=== PATIENT | female | born 1985 | race African-American/Black ===

== ENCOUNTER 2022-08-02 10:39 | Emergency (ER) | payer BC, SELFPAY ==
--- NOTE | 2022-08-02 10:50 | ED.GENADULT ---
HPI - General Adult General Stated complaint: dizzy and lightheaded, abdominal pain Time Seen by Provider: 08/02/22 10:50 Mode of arrival: ambulatory Limitations: no limitations History of Present Illness HPI narrative: 36-year-old female presents with concern for 3 week history of ?not feeling herself . feeling lightheaded when she stands up, feeling nauseated, having abdominal pain that starts in the low back and radiates around to the right low abdomen. She reports decreased appetite. She denies fever, vomiting, diarrhea, dysuria, frequency, urgency, hematuria. She reports normal bowel movements. She reports she had a kidney stone last year that she had a procedure for, reports her symptoms were different at that time she had significant flank pain. She is not currently having flank pain. She denies fevers, chills, sweats. She does not currently have a primary care provider. She reports she has been having abnormal menstrual periods that are abnormally long her last menstrual period ended beginning of July ans was abnormally short. She is concern for MD complaint: Abdominal pain Related Data Home Medications Medication Instructions Recorded Confirmed No Home Medications 08/02/22 08/02/22 Allergies Allergy/AdvReac Type Severity Reaction Status Date / Time No Known Allergies Allergy Verified 08/02/22 10:57 Review of Systems Review of Systems: CONSTITUTIONAL: Denies malaise, chills, sweats, or fever. ENT: Denies rhinorrhea, congestion, sinus pain, otalgia or sore throat. CARDIOVASCULAR: Denies chest pain, palpitations, or edema. RESPIRATORY: Denies cough or dyspnea. GASTROINTESTINAL: Reports abdominal pain, nausea. Denies constipation, vomiting, diarrhea, bloody, or mucous stools. GENITOURINARY: Denies dysuria or hematuria. SKIN: Denies rash or itching. MUSCULOSKELETAL: Reports right low back pain. Denies joint pain or myalgia. NEUROLOGIC: Denies numbness, weakness, or headache. Reports lightheadedness All systems reviewed & are unremarkable except as noted in HPI and below PMFSH Comments At time of signature, agree with nursing past medical, surgical, social and family history. There is no relevant family history pertinent to the presenting complaint Exam Narrative: GENERAL: Well-appearing, well-nourished, and in no acute distress. HEAD: Normocephalic, atraumatic. EYES: PERRLA, sclera clear, and EOMI. No nystagmus. ENT: Nares clear, no rhinorrhea or epistaxis. Mucous membranes moist. NECK: Supple. No lymphadenopathy. CHEST: No respiratory distress. Clear to auscultation. No bony deformities, no asymmetry. Speaks in full sentences. HEART: Regular rate and rhythm. No murmur heard. Normal peripheral pulses. ABDOMEN: Soft, nondistended, normal active bowel sounds, no palpable masses. Suprapubic tenderness. No CVA tenderness SKIN: Warm, dry, no visible rash. NEURO: Alert and oriented x3. PSYCH: Normal mood and affect Course Course Emergency Course: Discussed exam findings, UA findings, positive test with patient. Advised transfer to emergency department for further evaluation and rule out ectopic . Patient is aware of, understands and agrees to be transferred to the emergency department. EMS offered, patient would prefer to go via private vehicle. Patient agrees to proceed directly to the emergency department. Portions of this record may have been created with voice recognition software Level of Care: Express Care Visit Vital Signs Vital signs: Reviewed. Transfer Transfered to: [facility] Transportation: Other (private vehicle) Transfer rationale: RLQ pain, ectopic Accepting physician: Alex Miranda Medical Decision Making MDM Narrative Medical decision making narrative: Exam findings and imaging show no acute concerns or changes; patient is non-toxic appearing and is in no distress. Patient is appropriate for outpatient treatment and follow-up. Gwen
[2022-08-02 10:51] VITALS: BP 142/87; PULSE 95; RESP 16; TEMP 37.3; O2SAT 100
== END 2022-08-02 11:26 | disposition short-term general hospital (02) ==
PROVIDERS: Emergency Provider Nurse Practitioner
DX: O26.899 Other specified pregnancy related conditions, unspecified trimester (principal); Z3A.00 Weeks of gestation of pregnancy not specified; R10.31 Right lower quadrant pain
CPT/HCPCS: 81003; 81025; 87086; 87088; 99213; G0463

== ENCOUNTER 2022-08-02 11:44 | Emergency (ER) | payer BC, SELFPAY ==
--- NOTE | ~2022-08-02 | US_ITS ---
EXAMINATION: US OB <=14 wk fetus w TV DATE: 08/02/2022 13:15 INDICATION: Right adnexal pain during first trimester TECHNIQUE: Real-time pelvic ultrasound utilizing both a transvaginal and transabdominal probe was pe rformed. The interpreting radiologist was not present for the study. COMPARISON: None. FINDINGS: The uterus measures 10.8 x 8.9 x 7.2 cm. There is an intrauterine gestational sac. A yolk sac and fe jose pole are identified. The crown rump length measures 1.0 cm, which correlates with an estimated ge stational age of 7 weeks and 1 days. 1.5 x 1.0 x 0.6 similar subchorionic hematoma along the right si de of the gestational sac. heart motion is identified measuring 147 beats per minute (bpm) by M -mode Doppler. Normal cervical length of 4.0 cm. 1.8 cm and 1.1 cm hypoechoic uterine fibroids. The right ovary is not visualized. The left ovary measures 3.4 x 2.1 x 2.2 cm. 1.8 cm thick-walled ce ntrally anechoic corpus luteum cyst in the left ovary. Vascular flow identified in the left ovary on color Doppler. There is no free fluid in the pelvis. IMPRESSION: 1. Single living fetus with heart rate of 147 BPM. 2. Small subchorionic hematoma. 3. Gestational age by ultrasound of 7 weeks 1 day(s) +/- 5 day(s) with ultrasound estimated date of d elivery ([facility]) of 03/20/2023. 4. Fibroid uterus. Reviewed, dictated and finalized at location A. RY DRILL RIG OPERATOR IMPRESSION: 1. Single living fetus with heart rate of 147 BPM. 2. Small subchorionic hematoma. 3. Gestational age by ultrasound of 7 weeks 1 day(s) +/- 5 day(s) with ultrasou nd estimated date of delivery ([facility]) of 03/20/2023. 4. Fibroid uterus.
[2022-08-02 11:46] VITALS: BP 144/84; PULSE 80; RESP 14; TEMP 36.4; O2SAT 100
[2022-08-02 12:16] LABS: Basophils Percent Auto 0.1 % (0.2-1.2); Eosinophils Percent Auto 0.3 % (0-4.4); Hematocrit 37.5 % (37.0-47.0); Hemoglobin 12.6 g/dL (12.0-15.0); Immature Granulocyte Absolute 0.03 K/mm3 (0.00-0.031); Immature Granulocyte Percent A 0.4 % (0-0.5); Lymphocytes Absolute Auto 1.99 K/mm3 (0.9-3.2); Lymphocytes Percent Auto 27.1 % (18.3-44.2); Mean Corpuscular HGB Conc 33.6 g/dl (32-36); Mean Corpuscular Hemoglobin 29.1 pg (26-34); Mean Corpuscular Volume 86.6 fl (80-100); Mean Platelet Volume 9.9 fl (7.4-10.4); Monocytes Absolute Auto 0.4 K/mm3 (0.1-0.6); Monocytes Percent Auto 5.2 % (2.6-8.5); Neutrophils Absolute Auto 4.9 K/mm3 (1.3-6.7); Neutrophils Percent Auto 66.9 % (45.5-73.1); Platelet Count Result 329 k/mm3 (150-375); Red Blood Count 4.33 M/mm3 (4.2-5.4); White Blood Count 7.3 K/mm3 (4.5-10.0)
[2022-08-02 12:18] LABS: Appearance Urine Clear (Clear); Bilirubin Urine Negative (Negative); Blood Urine Trace-intact (Negative); Color Urine Yellow (Yellow); Glucose Urine UA Negative (Negative); Ketones Urine Negative (Negative); Leukocyte Esterase Ur Negative LEU/UL (Negative); Nitrate Urine Negative (Negative); Protein Urine 1+ mg/dL (Negative); Specific Grav Ur 1.025 (1.001-1.035); Urobilinogen Urine 0.2 mg/dL (<2.0)
[2022-08-02 12:24] LABS: Add Urine Microscopic? YES; Bacteria Urine Trace /hpf; Mucus Urine Rare /lpf; Squamous Epithelial Cell Urine Many /hpf (Few)
[2022-08-02 12:25] LABS: Alanine Aminotransferase 18 U/L (6-35); Albumin Level 4.6 g/dL (3.5-5.1); Alkaline Phosphatase 55 U/L (38-126); Anion Gap 10 mmol/L (8-16); Aspartate Amino Transferase 24 U/L (14-36); Bilirubin,Total 0.5 mg/dL (0.2-1.3); Blood Urea Nitrogen 9 mg/dL (7-17); Calcium 8.7 mg/dL (8.4-10.2); Carbon Dioxide 23 mmol/L (22-30); Chloride 103 mmol/L (98-107); Estimated CRCL calculation 121 ml/min; Estimated Glomerular Filt Rate > 60; Glucose 96 mg/dL (65-110); Lipase 147 U/L (23-300); Potassium 3.4 mmol/L (3.4-5.0); Sodium 136 mmol/L (137-145)
--- NOTE | 2022-08-02 12:54 | PC.NURSE ---
Pt taken to US
--- NOTE | 2022-08-02 15:28 | ED.ABDPAIN ---
HPI - Abdominal Pain General Chief Complaint: Abdominal Pain Stated Complaint: Abd pain Time Seen by Provider: 08/02/22 11:53 History of Present Illness HPI narrative: Patient is a 36-year-old female who presents ER with lower abdominal cramping. She went to an urgent care to be evaluated and discovered she was . She reports LMP was 4 weeks ago. She reports that she is a G6, P6 (1 twin delivery). She has had no vaginal bleeding or discharge. Denies any additional issues. Related Data Allergies Allergy/AdvReac Type Severity Reaction Status Date / Time No Known Allergies Allergy Verified 08/02/22 11:57 Review of Systems Review of Systems: All systems reviewed & are unremarkable except as noted in HPI and below Constitutional: Constitutional: Denies chills, Denies fatigue and Denies fever(s) Respiratory: Respiratory: Denies cough and Denies dyspnea Gastrointestinal: Gastrointestinal: Reports abdominal pain, Denies nausea and Denies vomiting Genitourinary: Genitourinary: Denies abnormal vaginal bleeding, Denies hematuria, Denies nocturia, Denies dysuria, Denies flank pain and Denies vaginal discharge PMFSH Past Medical History Medical History (Updated 08/02/22 @ 15:44 by Mehrdad Cordova MD) Healthy female adult Surgical History Surgical History (Updated 08/02/22 @ 15:44 by Mehrdad Cordova MD) No pertinent past surgical history Exam Narrative: GENERAL: Well-appearing, well-nourished, and in no acute distress. HEAD: Normocephalic, atraumatic. CHEST: Clear to auscultation. No respiratory distress. HEART: Regular rate and rhythm. Normal peripheral pulses. ABDOMEN: Soft, mild suprapubic discomfort without guarding, nondistended. EXTREMITIES: Normal range of motion. No edema. SKIN: Warm, dry, no rash. NEURO: Alert and oriented x3. PSYCH: Normal mood and affect. Course Course Emergency Course: Patient resting comfortably. Informed of results. Discussed subchorionic hematoma and need for follow-up with OB. Will provide patient with phone number of on-call OB. Discussed patient does not require RhoGAM as her blood type is be positive. We will treat urine for infection given and lower abdominal cramping. Vital Signs Vital signs: Vital Signs Temperature 97.6 F 08/02/22 11:46 Pulse Rate 80 08/02/22 11:46 Respiratory Rate 14 08/02/22 11:46 Blood Pressure 144/84 H 08/02/22 11:46 Pulse Oximetry 100 08/02/22 11:46 Oxygen Delivery Room Air 08/02/22 11:46 Temperature 97.6 F 08/02/22 11:46 Pulse Rate 80 08/02/22 11:46 Respiratory Rate 14 08/02/22 11:46 Blood Pressure 144/84 H 08/02/22 11:46 Pulse Oximetry 100 08/02/22 11:46 Oxygen Delivery Room Air 08/02/22 11:46 MDM - Abdominal Pain Lab Data 08/02/22 11:59 08/02/22 11:59 Labs: Lab Results 08/02/22 08/02/22 08/02/22 Range/Units 11:59 11:59 12:07 WBC 7.3 (4.5-10.0) K/mm3 RBC 4.33 (4.2-5.4) M/mm3 Hgb 12.6 (12.0-15.0) g/dL Hct 37.5 (37.0-47.0) % MCV 86.6 (80-100) fl MCH 29.1 (26-34) pg MCHC 33.6 (32-36) g/dl RDW 14.0 (11.5-14.5) % Plt Count 329 (150-375) k/mm3 MPV 9.9 (7.4-10.4) fl Immature Gran % (Auto) 0.4 (0-0.5) % Neut % (Auto) 66.9 (45.5-73.1) % Lymph % (Auto) 27.1 (18.3-44.2) % [place] % (Auto) 5.2 (2.6-8.5) % Eos % (Auto) 0.3 (0-4.4) % Baso % (Auto) 0.1 L (0.2-1.2) % Lymph # (Auto) 1.99 (0.9-3.2) K/mm3 [place] # (Auto) 0.4 (0.1-0.6) K/mm3 Eos # (Auto) 0.0 (0-0.3) K/mm3 Baso # (Auto) 0.0 (0.0-0.1) K/mm3 Abs Immat Gran (auto) 0.03 (0.00-0.031) K/mm3 Absolute Neuts (auto) 4.9 (1.3-6.7) K/mm3 Absolute Nucleated RBC 0.0 (0.0-0.012) K/mm3 Nucleated RBC % 0.0 (0.0-0.2) % Sodium 136 L (137-145) mmol/L Potassium 3.4 (3.4-5.0) mmol/L Chloride 103 (98-107) mmol/L Carbon Dioxide 23 (22-30) mmol/L Anion Gap 10 (8-16)
== END 2022-08-02 15:49 | disposition home or self-care (01) ==
PROVIDERS: Emergency Provider Emergency Medicine
DX: O23.41 Unspecified infection of urinary tract in pregnancy, first trimester (principal); O46.8X1 Other antepartum hemorrhage, first trimester; O34.11 Maternal care for benign tumor of corpus uteri, first trimester; Z3A.01 Less than 8 weeks gestation of pregnancy
CPT/HCPCS: 36415; 76801; 76817; 80053; 81001; 81025; 83690; 85025; 86900; 86901; 99284

== ENCOUNTER 2022-10-11 10:32 | Outpatient (CLI) | payer BC, SELFPAY ==
[2022-10-11 11:09] LABS: Basophils Percent Auto 0.4 % (0.2-1.2); Eosinophils Absolute Auto 0.1 K/mm3 (0-0.3); Hematocrit 37.4 % (37.0-47.0); Hemoglobin 12.3 g/dL (12.0-15.0); Immature Granulocyte Absolute 0.09 K/mm3 (0.00-0.031); Immature Granulocyte Percent A 1.2 % (0-0.5); Lymphocytes Percent Auto 23.2 % (18.3-44.2); Mean Corpuscular HGB Conc 32.9 g/dl (32-36); Mean Corpuscular Volume 91.2 fl (80-100); Mean Platelet Volume 9.9 fl (7.4-10.4); Monocytes Absolute Auto 0.6 K/mm3 (0.1-0.6); Neutrophils Absolute Auto 5.2 K/mm3 (1.3-6.7); Neutrophils Percent Auto 66.2 % (45.5-73.1); Platelet Count Result 254 k/mm3 (150-375); Red Cell Distribution Width 15.3 % (11.5-14.5); White Blood Count 7.8 K/mm3 (4.5-10.0)
[2022-10-11 12:02] LABS: HIV 1/2 Ab P24 Ag Result Negative (Negative)
[2022-10-11 12:18] LABS: Hepatitis B Surface Antigen Negative (Negative)
[2022-10-11 14:42] LABS: Hepatitis B Surface Antigen 0.06 S/C; Rubella IgG Antibody > 120.0 IU/ML
[2022-10-12 11:28] LABS: Rapid Plasma Reagin Non-Reactive (NonReactive)
[2022-10-15 08:47] LABS: CMV IgG Antibody >10.00 U/mL (<0.60)
== END 2022-10-11 10:33 | disposition home or self-care (01) ==
PROVIDERS: Visit Provider Student in an Organized Health Care Education/Training Program
DX: Z34.90 Encounter for supervision of normal pregnancy, unspecified, unspecified trimester (principal)
CPT/HCPCS: 36415; 84702; 85025; 85660; 86592; 86644; 86703; 86747; 86762; 86787; 86850; 86900; 86901; 87086; 87088; 87340; G0432

== ENCOUNTER 2022-11-07 11:50 | Outpatient (CLI) | payer BC, SELFPAY ==
[2022-11-07 12:11] VITALS: BP 124/76; PULSE 95
[2022-11-07 12:15] VITALS: BP 120/80; PULSE 102
[2022-11-07 12:30] VITALS: TEMP 36.9
--- NOTE | 2022-11-07 12:35 | PC.NURSE ---
Called Dr. Cruz with pt status. Informed of pt admission for possible leaking of fluid. ROM plus is negative, tracing appropriate for gestational age, no contractions seen on monitor, or felt by pt at this time. May D/C home.
== END 2022-11-07 12:40 | disposition home or self-care (01) ==
LOC: ANHOBOP 11:55 → ANHOBPP 11:57
PROVIDERS: Visit Provider Student in an Organized Health Care Education/Training Program
DX: O42.90 Premature rupture of membranes, unspecified as to length of time between rupture and onset of labor, unspecified weeks of gestation (principal); Z3A.00 Weeks of gestation of pregnancy not specified
CPT/HCPCS: 59025; 84112; 99199

== ENCOUNTER 2022-12-28 11:42 | Outpatient (CLI) | payer BC, SELFPAY ==
[2022-12-28 12:05] LABS: Basophils Percent Auto 0.2 % (0.2-1.2); Eosinophils Absolute Auto 0.1 K/mm3 (0-0.3); Eosinophils Percent Auto 0.7 % (0-4.4); Hematocrit 36.7 % (37.0-47.0); Hemoglobin 12.2 g/dL (12.0-15.0); Immature Granulocyte Absolute 0.09 K/mm3 (0.00-0.031); Immature Granulocyte Percent A 1.1 % (0-0.5); Mean Corpuscular HGB Conc 33.2 g/dl (32-36); Mean Corpuscular Hemoglobin 30.3 pg (26-34); Mean Corpuscular Volume 91.3 fl (80-100); Monocytes Absolute Auto 0.5 K/mm3 (0.1-0.6); Monocytes Percent Auto 6.2 % (2.6-8.5); Neutrophils Absolute Auto 5.7 K/mm3 (1.3-6.7); Neutrophils Percent Auto 68.8 % (45.5-73.1); Platelet Count Result 249 k/mm3 (150-375); Red Blood Count 4.02 M/mm3 (4.2-5.4); White Blood Count 8.3 K/mm3 (4.5-10.0)
[2022-12-28 13:03] LABS: HIV 1/2 Ab P24 Ag Result Negative (Negative)
== END 2022-12-28 11:43 | disposition home or self-care (01) ==
LOC: ANHLAB 11:43
PROVIDERS: Visit Provider Obstetrics & Gynecology
DX: Z34.90 Encounter for supervision of normal pregnancy, unspecified, unspecified trimester (principal); Z3A.00 Weeks of gestation of pregnancy not specified
CPT/HCPCS: 36415; 85025; 86703; G0432

== ENCOUNTER 2023-02-22 16:15 | Outpatient (CLI) | payer BC, SELFPAY ==
[2023-02-22] VITALS (8 sets, daily range): BP systolic 144–166; BP diastolic 74–95; PULSE 103–119
[2023-02-22 17:00] LABS: Basophils Percent Auto 0.2 % (0.2-1.2); Eosinophils Absolute Auto 0.1 K/mm3 (0-0.3); Eosinophils Percent Auto 0.8 % (0-4.4); Hematocrit 36.7 % (37.0-47.0); Hemoglobin 11.9 g/dL (12.0-15.0); Immature Granulocyte Percent A 2.4 % (0-0.5); Lymphocytes Absolute Auto 1.92 K/mm3 (0.9-3.2); Lymphocytes Percent Auto 23.2 % (18.3-44.2); Mean Corpuscular HGB Conc 32.4 g/dl (32-36); Mean Corpuscular Hemoglobin 30.3 pg (26-34); Mean Corpuscular Volume 93.4 fl (80-100); Mean Platelet Volume 10.7 fl (7.4-10.4); Monocytes Absolute Auto 0.8 K/mm3 (0.1-0.6); Monocytes Percent Auto 10.1 % (2.6-8.5); Neutrophils Absolute Auto 5.2 K/mm3 (1.3-6.7); Neutrophils Percent Auto 63.3 % (45.5-73.1); Platelet Count Result 207 k/mm3 (150-375); Red Blood Count 3.93 M/mm3 (4.2-5.4); Red Cell Distribution Width 14.4 % (11.5-14.5); White Blood Count 8.3 K/mm3 (4.5-10.0)
[2023-02-22 17:13] LABS: Alanine Aminotransferase 24 U/L (6-35); Albumin Level 3.7 g/dL (3.5-5.1); Alkaline Phosphatase 99 U/L (38-126); Anion Gap 5 mmol/L (8-16); Aspartate Amino Transferase 37 U/L (14-36); Bilirubin,Total 0.3 mg/dL (0.2-1.3); Blood Urea Nitrogen 5 mg/dL (7-17); Carbon Dioxide 21 mmol/L (22-30); Chloride 107 mmol/L (98-107); Estimated Glomerular Filt Rate > 60; Glucose 86 mg/dL (65-110); Potassium 3.3 mmol/L (3.4-5.0); Sodium 133 mmol/L (137-145); Uric Acid 4.6 mg/dL (2.5-7.5)
[2023-02-22 17:16] LABS: Creatinine Urine 68.2 mg/dL; Total Protein Urine Random 31 mg/dL; Ur Ttl Prot Creatinine Ratio 0.45 mg/mg (0-0.20)
[2023-02-22 17:18] LABS: Appearance Urine Clear (Clear); Bacteria Urine 1+ /hpf; Bilirubin Urine Negative (Negative); Blood Urine 1+ (Negative); Color Urine Yellow (Yellow); Glucose Urine UA Negative (Negative); Ketones Urine Negative (Negative); Leukocyte Esterase Ur 1+ LEU/UL (NEGATIVE); Need Manual Microscopic Reviewed; Nitrate Urine Negative (Negative); Non Pathogenic Casts 0-2; Protein Urine Trace mg/dL (Negative); Squamous Epithelial Cell Urine Few /hpf (Few); Urobilinogen Urine 0.2 mg/dL (<2.0); WBC Urine 21-50 /hpf (0-3)
[2023-02-22 17:37] LABS: Add Urine Microscopic? YES
--- NOTE | 2023-02-22 17:55 | PC.NURSE ---
Dr. Hamilton notified of this pt. Pt presents with Headache x 7 days and N/Vomiting x 3 days. VS and labs reported to provider. Order for 1g Tylenol and zofran PO and 24 hour urine.
[2023-02-22] MEDS: ACETAMINOPHEN 500 MG TABLET 1000 MG PO (18:07)
[2023-02-22] MEDS: ONDANSETRON HCL ODT 4 MG TABLET PO (18:08)
--- NOTE | 2023-02-22 19:43 | PM.OBTRLD ---
OB - Triage/Final Diagnosis Visit Information Reason for evaluation: other (headache, nausea/vomiting ) Comments/Additional reasons for admission: I have assessed the risk for this patient, Dayanara Mariscal, and determined that she would benefit from observation care. Evaluation Laboratory results: Laboratory Tests 02/22/23 16:46 WBC 8.3 RBC 3.93 L Hgb 11.9 L Hct 36.7 L MCV 93.4 MCH 30.3 MCHC 32.4 RDW 14.4 Plt Count 207 MPV 10.7 H Immature Gran % (Auto) 2.4 H Neut % (Auto) 63.3 Lymph % (Auto) 23.2 [place] % (Auto) 10.1 H Eos % (Auto) 0.8 Baso % (Auto) 0.2 Lymph # (Auto) 1.92 Nelson # (Auto) 0.8 H Eos # (Auto) 0.1 Baso # (Auto) 0.0 Abs Immat Gran (auto) 0.20 H Absolute Neuts (auto) 5.2 Absolute Nucleated RBC 0.0 Nucleated RBC % 0.0 Sodium 133 L Potassium 3.3 L Chloride 107 Carbon Dioxide 21 L Anion Gap 5 L BUN 5 L Creatinine 0.40 L Estim Creat Clear Calc Not Reportable Estimated GFR > 60 Glucose 86 Uric Acid 4.6 Calcium 9.0 Total Bilirubin 0.3 AST 37 H ALT 24 Alkaline Phosphatase 99 Total Protein 7.0 Albumin 3.7 Urine Color Yellow Urine Appearance Clear Urine pH 7.0 Ur Specific [place] 1.010 Urine Protein Trace Urine Glucose (UA) Negative Urine Ketones Negative Ur Blood (Man) 1+ H Urine Nitrate Negative Urine Bilirubin Negative Urine Urobilinogen 0.2 Ur Leukocyte Esterase 1+ H Add Ur Microanalysis Reviewed Urine RBC 6-10 H Urine WBC 21-50 Ur Squamous Epith Cells Few Urine Bacteria 1+ H Urine Casts 0-2 U Random Total Protein 31 Urine Creatinine 68.2 Protein/Creat Ratio 2 0.45 H Vital signs: Vital Signs - 24 hr 02/22/23 16:40 02/22/23 16:46 02/22/23 17:00 Pulse Rate 105 H 113 H 119 H Blood Pressure 145/85 H 145/91 H 148/95 H Blood Pressure [Right Arm] 02/22/23 17:16 02/22/23 17:31 02/22/23 17:46 Pulse Rate 110 H 114 H 103 H Blood Pressure 166/91 H 149/74 H 144/88 H Blood Pressure [Right Arm] 02/22/23 18:12 Pulse Rate 110 H Blood Pressure Blood Pressure [Right Arm] 145/85 H
== END 2023-02-22 19:14 | disposition home or self-care (01) ==
LOC: ANHOBOP 16:22 → ANHOBPP 16:23
PROVIDERS: Visit Provider Student in an Organized Health Care Education/Training Program
DX: O13.9 Gestational [pregnancy-induced] hypertension without significant proteinuria, unspecified trimester (principal); R51.9 Headache, unspecified; R11.2 Nausea with vomiting, unspecified; Z3A.00 Weeks of gestation of pregnancy not specified
CPT/HCPCS: 36415; 59025; 80053; 81001; 82570; 84156; 84550; 85025; 87086; 99199; A9270

== ENCOUNTER 2023-02-23 19:36 | Outpatient (NON) | payer BC, SELFPAY ==
[2023-02-23 21:54] LABS: Total Volume 24 Hour Urine 3100 ml
[2023-02-23 21:55] LABS: Specific Gravity Ur 1.012
[2023-02-23 22:04] LABS: Total Protein Urine Random 19 mg/dL
[2023-02-23 22:05] LABS: Creatinine 24 Hour Urine 1.5 gm/24 (0.8-1.8); Creatinine Urine 49.1 mg/dL; Total Protein Urine 24 Hr 589 mg/24hr (28-141)
== END 2023-02-23 19:37 | disposition home or self-care (01) ==
LOC: ANHOBOP 19:57
PROVIDERS: Visit Provider Student in an Organized Health Care Education/Training Program
DX: O13.9 Gestational [pregnancy-induced] hypertension without significant proteinuria, unspecified trimester (principal)
CPT/HCPCS: 81050; 82570; 84156

== ENCOUNTER 2023-02-28 06:39 | Inpatient (IN) | payer BC, SELFPAY ==
[2023-02-28] VITALS (161 sets, daily range): BP systolic 107–157; BP diastolic 51–115; PULSE 68–108; TEMP 36.5–37; O2SAT 96–100; BMI 36.2
[2023-02-28 07:35] LABS: Basophils Percent Auto 0.3 % (0.2-1.2); Eosinophils Absolute Auto 0.1 K/mm3 (0-0.3); Eosinophils Percent Auto 1.1 % (0-4.4); Hematocrit 36.2 % (37.0-47.0); Hemoglobin 12.1 g/dL (12.0-15.0); Immature Granulocyte Absolute 0.11 K/mm3 (0.00-0.031); Immature Granulocyte Percent A 1.5 % (0-0.5); Lymphocytes Absolute Auto 1.83 K/mm3 (0.9-3.2); Lymphocytes Percent Auto 25.8 % (18.3-44.2); Mean Corpuscular HGB Conc 33.4 g/dl (32-36); Mean Corpuscular Hemoglobin 30.5 pg (26-34); Mean Corpuscular Volume 91.2 fl (80-100); Mean Platelet Volume 10.2 fl (7.4-10.4); Monocytes Absolute Auto 0.6 K/mm3 (0.1-0.6); Monocytes Percent Auto 7.7 % (2.6-8.5); Neutrophils Absolute Auto 4.5 K/mm3 (1.3-6.7); Neutrophils Percent Auto 63.6 % (45.5-73.1); Platelet Count Result 192 k/mm3 (150-375); Red Blood Count 3.97 M/mm3 (4.2-5.4); Red Cell Distribution Width 14.2 % (11.5-14.5); White Blood Count 7.1 K/mm3 (4.5-10.0)
[2023-02-28 07:52] LABS: Alanine Aminotransferase 23 U/L (6-35); Albumin Level 3.8 g/dL (3.5-5.1); Alkaline Phosphatase 109 U/L (38-126); Anion Gap 8 mmol/L (8-16); Aspartate Amino Transferase 25 U/L (14-36); Bilirubin,Total 0.3 mg/dL (0.2-1.3); Blood Urea Nitrogen 9 mg/dL (7-17); Calcium 8.7 mg/dL (8.4-10.2); Carbon Dioxide 19 mmol/L (22-30); Chloride 108 mmol/L (98-107); Estimated Glomerular Filt Rate > 60; Glucose 98 mg/dL (65-110); Potassium 3.1 mmol/L (3.4-5.0); Sodium 135 mmol/L (137-145); Uric Acid 5.5 mg/dL (2.5-7.5)
[2023-02-28] MEDS: AMPICILLIN 2 GM/NS 100 ML 2 GM/100 ML BAG IVPB (07:56)
[2023-02-28] MEDS: LACTATED RINGERS 1,000 ML 125 ML IV CONT (07:57)
[2023-02-28] MEDS: OXYTOCIN 30 UNITS/NS 500 ML 30 UNITS/500 ML BAG IV CONT (07:58)
--- NOTE | 2023-02-28 08:23 | LDADM ---
This patient, Dayanara Mariscal, was admitted to Labor/Delivery/Recovery 102 on 02/28/23 at 06:39. Plans for labor, pain management and were discussed with patient. Patient/family oriented to hospital policies and general routines including ID bracelet, bed and alarms, visiting hours, pain management, procedures, bathroom and other care routines, personal items, smoking policy, room service/diet and guest tray routines, security routines, and visiting hours. Patient/Family are encouraged to report perceived risks to care and to ask questions if they do not understand what they are told or what they should do. See OBIX for further documentation.
--- NOTE | 2023-02-28 08:54 | WPDANESEPP ---
Anes - Eval Pre Procedure Procedure: Labor Epidural Date/Time: 02/28/23 08:54 Surgeon: Joy Preop Diagnosis: Labor Pain Pre Op Diagnosis: Induction of Labor Patient Data Age: 37 Gender: F Height: 1.65 m Weight: 98.8 kg Last Vital Signs Temp 36.6 C 02/28/23 07:56 Pulse 83 02/28/23 08:46 BP 122/77 02/28/23 08:46 Allergies Allergy/AdvReac Type Severity Reaction Status Date / Time No Known Allergies Allergy Verified 02/21/23 14:18 Home Medications Medication Instructions Recorded Confirmed Type vitamins-iron fumarate 65 1 tablet PO DAILY 11/09/22 02/28/23 History mg iron-folic acid 1 mg tablet Laboratory Tests 02/28/23 02/28/23 07:26 07:26 WBC 7.1 K/mm3 (4.5-10.0) RBC 3.97 L M/mm3 (4.2-5.4) Hgb 12.1 g/dL (12.0-15.0) Hct 36.2 L % (37.0-47.0) MCV 91.2 fl (80-100) MCH 30.5 pg (26-34) MCHC 33.4 g/dl (32-36) RDW 14.2 % (11.5-14.5) Plt Count 192 k/mm3 (150-375) MPV 10.2 fl (7.4-10.4) Immature Gran % (Auto) 1.5 H % (0-0.5) Neut % (Auto) 63.6 % (45.5-73.1) Lymph % (Auto) 25.8 % (18.3-44.2) [place] % (Auto) 7.7 % (2.6-8.5) Eos % (Auto) 1.1 % (0-4.4) Baso % (Auto) 0.3 % (0.2-1.2) Lymph # (Auto) 1.83 K/mm3 (0.9-3.2) [place] # (Auto) 0.6 K/mm3 (0.1-0.6) Eos # (Auto) 0.1 K/mm3 (0-0.3) Baso # (Auto) 0.0 K/mm3 (0.0-0.1) Abs Immat Gran (auto) 0.11 H K/mm3 (0.00-0.031) Absolute Neuts (auto) 4.5 K/mm3 (1.3-6.7) Absolute Nucleated RBC 0.0 K/mm3 (0.0-0.012) Nucleated RBC % 0.0 % (0.0-0.2) Sodium 135 L mmol/L (137-145) Potassium 3.1 L mmol/L (3.4-5.0) Chloride 108 H mmol/L (98-107) Carbon Dioxide 19 L mmol/L (22-30) Anion Gap 8 mmol/L (8-16) BUN 9 mg/dL (7-17) Creatinine 0.50 L mg/dL (0.7-1.0) Estim Creat Clear Calc Not Reportable Estimated GFR > 60 (59 - ) Glucose 98 mg/dL (65-110) Uric Acid Cancelled 5.5 mg/dL (2.5-7.5) Calcium 8.7 mg/dL (8.4-10.2) Total Bilirubin 0.3 mg/dL (0.2-1.3) AST 25 U/L (14-36) ALT 23 U/L (6-35) Alkaline Phosphatase 109 U/L (38-126) Total Protein 7.0 g/dL (6.3-8.2) Albumin 3.8 g/dL (3.5-5.1) RPR Pending Blood Type B Positive Antibody Screen Negative : gestational age (, REED 03/20/23) Patient hx anesthesia problems: none Family hx anesthesia problems: none Results Review: All pre-operative results and documents have been reviewed as part of the pre-operative evaluation. [facility] Past Medical History Medical History Healthy female adult Kidney stone Surgical History Surgical History No pertinent past surgical history Family History Family History Father Hypertension Social History Social History Smoking status: Never smoker Second hand tobacco smoke exposure: No Alcohol intake: former Substance use: never Lack of Transportation: No Lack of Food: Never True Current Housing: I Have Housing Concerned About Future Housing: No Difficulty Paying Gas/Electric Bills: No Difficulty Paying for Meds: No Currently Unemployed: No Education: High School Diploma/GED Difficulty w/ Childcare or Family Care: No Living arrangements: other Additional living arrangements comments: and children Occupation/Education: unemployed Gender identity (if verbalized by the patient): Female Sexual Orientation (if Verbalized by the Patient): Straight or Heterosexual Spiritual care concerns: No
[2023-02-28 10:57] LABS: Rapid Plasma Reagin Non-Reactive (NonReactive)
[2023-02-28] MEDS: AMPICILLIN 1 GM/NS 50 ML 1 GM/50 ML BAG IVPB ×3 (12:00→20:38)
[2023-02-28] MEDS: LACTATED RINGERS 1,000 ML 999 ML IV CONT ×2 (14:34→19:43)
--- NOTE | 2023-02-28 14:48 | WPDHPUPDATE1 ---
History and Physical Update Update Date/Time: 02/28/23 14:48 37-year-old who presents for induction of labor for preeclampsia without severe features at 37 weeks. Patient has a history of preeclampsia with delivery in previous . History and Physical has been reviewed, including an updated exam of the patient. There are NO changes in the patient's condition. Risks, benefits, and alternatives have been discussed and questions answered. Patient agrees to proceed with procedure. A/P: Admit to L&D Routine admission orders Rh positive GBS positive, will initiate antibiotics in labor Patient will then for preeclampsia without severe features Will monitor blood pressures Will consider magnesium sulfate if necessary Plan for Pitocin induction of labor Continuous external monitoring
[2023-02-28] MEDS: miSOPROStol 200 MCG TABLET 1000 MCG (21:12)
--- NOTE | 2023-02-28 21:13 | P.PCNOB_ITS ---
OB - Delivery Note Procedure Procedure: Patient pushed for a spontaneous vaginal delivery. A nuchal cord x 2 was noted and reduced on the perineum. The fetus was delivered atraumatically and placed on the maternal abdomen. The cord was clamped and cut after 1 minute of life. The cord was double clamped and cut and a segment of cord was collected for cord gases. Cord blood was collected for blood type and Coomb's testing. The placenta delivered spontaneously and was noted to be intact. The perineum was inspected and there were no lacerations noted. Bimanual exam was performed and the uterus palpated firm but enlarged. A large uterine fibroid was palpated. Given patient's increased risk for hemorrhage, prophylactice misoprostol 1000 mcg was placed NH. Good hemostasis was noted at the time. The patient and fetus were stable in the delivery room. Events: Preeclampsia w/o severe features Induction method: Per Pitocin Protocol Delivery augmentation: Rupture of Membranes Delivery monitor: External FHT Route of delivery: Episiotomy description: None Laceration Description: None Specimen: No Quantitative Blood Loss (ml): 200 Anesthesia type: Epidural Disposition: Floor () Complications: No immediate complications [place] Baby Date of : 02/28/23 Time of : 21:06 Weeks of gestation at delivery: 37 gender: Male Weight (pounds): 6 Weight (ounces): 15 presentation: vertex position: Right Occiput Anterior Placenta delivery description: Spontaneous Cord Vessel Description: 3 Vessels, Nuchal Cord (x2), Loose and Reduced score one minute: 7 score five minutes: 9 AMG Delivery Billing Delivery Delivery: Delivery Charge
[2023-03-01] VITALS (9 sets, daily range): BP systolic 122–152; BP diastolic 61–98; PULSE 76–101; RESP 14–18; TEMP 36.3–37; O2SAT 98–100
[2023-03-01] MEDS: BENZOCAINE 20% AER SPR (*SP) 56 GM CAN 1 SPRAY TOPICAL (00:50)
[2023-03-01] MEDS: WITCH HAZEL 40 PADS 1 PAD TOPICAL (00:50)
--- NOTE | 2023-03-01 00:52 | PC.NURSE ---
Patient started 999 bag of pitocin at at 2011 and finished bag at 2134. at 2134 pitocin started on the 125ml/h bag
[2023-03-01] MEDS: IBUPROFEN 600 MG TABLET PO ×3 (01:25→16:52)
[2023-03-01 05:28] LABS: Hematocrit 34.8 % (37.0-47.0); Hemoglobin 11.7 g/dL (12.0-15.0)
[2023-03-01 05:38] LABS: Alanine Aminotransferase 19 U/L (6-35); Albumin Level 2.9 g/dL (3.5-5.1); Alkaline Phosphatase 91 U/L (38-126); Anion Gap 5 mmol/L (8-16); Aspartate Amino Transferase 23 U/L (14-36); Bilirubin,Total 0.4 mg/dL (0.2-1.3); Blood Urea Nitrogen 5 mg/dL (7-17); Calcium 8.1 mg/dL (8.4-10.2); Carbon Dioxide 20 mmol/L (22-30); Chloride 108 mmol/L (98-107); Estimated CRCL calculation 150 ml/min; Estimated Glomerular Filt Rate > 60; Glucose 88 mg/dL (65-110); Sodium 133 mmol/L (137-145)
--- NOTE | 2023-03-01 07:37 | PM.OBPNVD ---
OB - PN: Subj Subjective Date/time seen: 03/01/23 07:37 Patient comments: no complaints, pain well controlled and tolerating diet [place] feeding status: exclusively breast feeding Narrative: patient doing well this AM. No complaints. Pain is well controlled. She reports minimal bleeding. She is ambulating and voiding without difficulty. She is tolerating PO. She denies N/V, fever, chills. OB - PN: Obj Data Labs 03/01/23 05:16 03/01/23 05:16 Labs: Laboratory Results - last 24 hr 02/28/23 02/28/23 03/01/23 07:26 07:26 05:16 Hgb 11.7 L Hct 34.8 L Sodium 135 L 133 L Potassium 3.1 L 3.0 L Chloride 108 H 108 H Carbon Dioxide 19 L 20 L Anion Gap 8 5 L BUN 9 5 L Creatinine 0.50 L 0.50 L Estim Creat Clear Calc Not Reportable 150 Estimated GFR > 60 > 60 Glucose 98 88 Uric Acid Cancelled 5.5 Calcium 8.7 8.1 L Total Bilirubin 0.3 0.4 AST 25 23 ALT 23 19 Alkaline Phosphatase 109 91 Total Protein 7.0 6.0 L Albumin 3.8 2.9 L RPR Non-reactive Blood Type B Positive Antibody Screen Negative OB - PN A/P Plan day: 1 Plan: routine care Comments: patient doing well H/H stable BP nl-mild, will continue to monitor pt desire infant circumcision, risks, benefits, alternatives discussed. Maternal consent obtained continue routine care Time Spent With Patient Time: Total time spent is greater than 50% in coordination of care (as documented) at patient's floor/unit and/or counseling patient: Time with patient: less than 15 minutes Review of Systems Review of Systems: All systems reviewed & are unremarkable except as noted in HPI and below Exam Const: General: comfortable and no acute distress Resp: Effort & Inspection: normal respiratory effort Cardio: Rate: regular rate GI: GI Palp: Yes Soft to palpation and No Tenderness to palpation present (GI) Auscultation: normal bowel sounds Other: fundus firm and below umbilicus. Psych: Affect: normal affect
[2023-03-01] MEDS: MULTIVIT/MIN/PREN/FOL AC/IRON TABLET 1 TAB PO (09:20)
--- NOTE | 2023-03-01 10:01 | PC.NURSE ---
[id number] Introductions were made, then consulted with patient to assess needs related to . Mother led the conversation with her?plans to feed?her infant, the?experience so far and her experience of all of her children almost 3 years. Mother is holding her infant wrapped in blankets. Encouraged understanding of the benefits of skin to skin (demonstrating unwrapping and placing upright on her chest), stimulating with massage touch, changing positions to encourage wakefulness, how to watch for early feeding cues, responsive feeding, feeding on demand (aiming for 8-12 times in 24 hours, about every 2-3 hours), milk production, building/maintaining a milk supply, duration of feeding, signs of adequate intake/output and how to record on the feeding sheet since it was been over 3 hours since the start of the last breastfeed. Mother demonstrates cradle positioning and shoving breast into her infants mouth. Mothers nipple is large and no swallows are visualized. RN offers an opportunity to work with mother with a different position to encourage a deeper latch and hopefully visualize swallows. Mother is open to learning. Reviewed positioning, supporting the breast to facilitate a deep latch, asymmetrical latch (off-center), leading with the chin with a big, open, wide gape and body close to mother. latched optimally to the left breast in football position. Education given to mother of how to visualize suck/swallow and did demonstrate swallowing. Infant was able to maintain latch without discomfort to mother. Nipple care reviewed with optimal latch and good positioning. Resources used to facilitate learning were used with the pie demonstration and the mom/baby guide. Mother voiced understanding of skin to skin, stimulating with massage touch, responsive feedings, encouraging on demand or if it has been 2 -2.5 hours since the start of the last , to call if does not latch, or if there is discomfort with . Resources provided for inpatient/outpatient with name written on the communication board and the mom/baby guide. Mother voiced understanding of information, demonstrated learning and will call if there is a request for assistance. Reported to the Primary RN.
--- NOTE | 2023-03-01 10:10 | WPDANLDPN2 ---
Anes-Prog Note L&D Date/Time: 03/01/23 10:10 Comfortable throughout: labor and delivery Neuraxial method: epidural Epidural/Spinal procedure site: clean & non-tender Neuro status: Neuro function grossly intact. Cardiovascular status: normal Respiratory status: normal Airway patency: baseline Mental status: baseline Post-Op hydration status: normal Vital Signs: Last Vital Signs Temp 36.3 C L 03/01/23 08:35 Pulse 82 03/01/23 08:35 Resp 16 03/01/23 08:35 BP 132/78 03/01/23 08:35 Pulse Ox 100 03/01/23 08:35 O2 Del Method Room Air 03/01/23 09:20 Pain score (VAS): 0 I/O: Intake & Output 02/28/23 03/01/23 03/01/23 23:59 07:59 15:59 Intake Total 50 100 Output Total 650 Balance 50 -550 Post-procedural complaints: none Patient feedback: Patient satisfied with anesthetic care.
[2023-03-01] MEDS: ACETAMINOPHEN 325 MG TABLET 650 MG PO ×2 (10:51→17:01)
[2023-03-01] MEDS: KETOROLAC 30 MG/ML VIAL (*BKC) IV PUSH (20:09)
[2023-03-01] MEDS: HYDROcodone/acetaminophen (*CRX) 5-325 MG TABLET 1 TAB PO ×2 (20:10→23:08)
[2023-03-02] MEDS: HYDROcodone/acetaminophen (*CRX) 5-325 MG TABLET 1 TAB PO ×3 (03:28→14:41)
[2023-03-02] MEDS: IBUPROFEN 600 MG TABLET PO ×2 (03:28→14:40)
[2023-03-02 04:30] VITALS: BP 138/74
--- NOTE | 2023-03-02 07:37 | P.DS_ITS ---
DS: Admitting Diagnosis Discharge Date 03/02/23 Admitting Diagnosis intrauterine at term preeclampsia w/o severe features DS: Discharge Diagnosis Discharge Diagnosis (1) : Code(s): Z34.90 - Encounter for supervision of normal , unspecified, unspecified trimester Status: Acute (2) Preeclampsia: Code(s): O14.90 - Unspecified pre-eclampsia, unspecified trimester Status: Acute OB - DS: Summary OB Procedures : None OB Procedures Intrapartum: Spontaneous Vag Delivery OB Procedures: : None Status at Discharge Functional status at discharge: independent ambulation Overall status at discharge: patient is back to baseline Time Spent with Patient Time attestation: Total time spent providing and/or coordinating discharge services: Time spent: Less than 30 minutes Exam Const: General: comfortable and no acute distress Resp: Effort & Inspection: normal respiratory effort Auscultation: clear to auscultation bilaterally Cardio: Rate: regular rate GI: GI Palp: Yes Soft to palpation Auscultation: normal bowel sounds Other: Fundus firm below umbilicus Psych: Appearance: grossly normal Mental Status: mental status grossly normal Affect: normal affect DS: Data Data Completed and Pending Pending studies at discharge: Pending at discharge 02/28/23 21:06 Surgical [PTH] Routine Discharge Plan Discharge Discharging Clinician: Jevon Hamilton Patient Disposition: Home, Self-Care Activity: as tolerated and pelvic rest Diet: regular Patient Instructions: Antibiotic Form, Preeclampsia and Eclampsia After Delivery (GEN), Vaginal Delivery (DC) Stand Alone Forms: General Discharge Information Follow-up/Referrals: Jevon Hamilton MD [Physician] - Discharge Medications: New acetaminophen 500 mg tablet 500 mg PO Q6H PRN (Reason: pain) Qty: 30 0RF Continued vit-iron fum-folic ac 65 mg iron- 1 mg tablet 1 tablet PO DAILY Date of admission: 02/28/23 06:39 Primary Care Provider: PHYSICIAN,PATIENT CARE PROVIDER Admitting Provider: Jevon Hamilton Attending physician on admission: Jevon Hamilton Condition: Stable
[2023-03-02 08:45] VITALS: BP 130/75; PULSE 68; RESP 16; TEMP 36.7; O2SAT 100
[2023-03-02] MEDS: DOCUSATE SODIUM 100 MG CAPSULE PO (10:32)
[2023-03-02] MEDS: MULTIVIT/MIN/PREN/FOL AC/IRON TABLET 1 TAB PO (10:32)
[2023-03-04 11:55] VITALS: BP 130/80; PULSE 86; RESP 16; TEMP 36.8; O2SAT 100
== END 2023-03-02 17:20 | disposition home or self-care (01) | DRG 807 ==
LOC: ANHLDR 06:48 → ANHOB2 03-01 00:26
PROVIDERS: Admitting Provider Student in an Organized Health Care Education/Training Program; Visit Provider Student in an Organized Health Care Education/Training Program
DX: O14.94 Unspecified pre-eclampsia, complicating childbirth (principal); Z37.0 Single live birth; Z3A.37 37 weeks gestation of pregnancy; O69.81X0 Labor and delivery complicated by cord around neck, without compression, not applicable or unspecified; O99.824 Streptococcus B carrier state complicating childbirth
CPT/HCPCS: 36415; 80053; 84550; 85014; 85018; 85025; 86592; 86850; 86900; 86901; 88307; A9270; J0290; J1885; J2590; J2795; J7120

== ENCOUNTER 2023-04-14 00:17 | Day surgery (SDC) | payer BC, SELFPAY ==
--- NOTE | 2023-04-11 14:39 | PC.NURSE ---
Report to the Outpatient Waiting Room, entrance under the green pavilion located off [facility], at time __1230 on date _04/14/23 . Planned Procedure Time: _1430 . Time changes happen often and if your time is changed the preop area will call you the afternoon before. - You and your visitor will be asked to self-screen and do not enter if you have any COVID symptoms. - A mask is optional within the hospital at this time. Patients may have clear liquids (water, carbonated beverages, clear teas, apple juice) until 3 hours prior to surgery with a maximum of 20 ounces. - No food from midnight until time of surgery - Infants may have breast milk until 4 hours before surgery, infant formula 6 hours prior to surgery. - Children will be allowed to drink immediately following surgery. If applicable, please bring a bottle or sippy cup to assist with drinking. Juice, water, soda, and popsicles are readily available. For infants on formula, please bring formula the day of surgery. Pacifiers are allowed. Take the following medications with a SIP of water the morning of surgery: NONE DO NOT STOP ANY OF YOUR OTHER PRESCRIPTION MEDICATIONS PRIOR TO SURGERY ?EXCEPT THE FOLLOWING Medications to discontinue per physician NONE Date to take last dose Please no make-up, nail turkmen, hairspray, perfume, deodorant, or body powder the day of surgery. No jewelry (including any body piercings) or valuables the day of surgery, leave them at home. Please take a shower or bath the night before, or the morning of, surgery with an antibacterial soap. Wear comfortable, loose fitting clothing. Children are encouraged to wear pajamas. - Jewelry must be removed prior to entering the operating room. Rings and piercings that are not removed may be cut off. - The hospital will not accept responsibility for valuables. - Please leave all valuables, including medications, at home the day of surgery. If you are going home after surgery, a licensed rolloff truck driver must drive you home. - NO public transportation without another adult if you receive anesthesia. - We recommend that an adult stay with you for 24 hours following discharge. - We also recommend that you do not drive, make important decision, drink alcoholic beverages, or take any drugs that were not prescribed by your health care provider for at least 24 hours after your discharge time. For Pediatric surgeries, we recommend two adults accompany the child home. Follow any additional instructions given to you from your surgeon. If you or anyone in your household have experienced Covid symptoms in the past week, please notify your surgeon or the nurse liaison at the phone number below for possible testing. Telephone instructions given to ___PATIENT and asked if any additional questions and then verbalized understanding. Patient advised to call surgeon office or pre surgery nurse liaison [phone] if any additional questions.
[2023-04-11 14:45] VITALS: BMI 31.9
[2023-04-14] VITALS (8 sets, daily range): BP systolic 129–165; BP diastolic 85–102; PULSE 66–89; RESP 12–16; TEMP 36.1–36.7; O2SAT 97–100
--- NOTE | 2023-04-14 08:39 | PM.IMHP ---
H&P: HPI History of Present Illness Date/Time: 04/14/23 08:39 Chief Complaint: encounter for permanent sterilization Narrative: 37-year-old female who presents for laparoscopic bilateral salpingectomy for permanent sterilization. Patient counseled on permanent sterilization. Patient declined hormonal contraceptive alternatives. Review of Systems Cardiovascular: Cardiovascular: Denies chest pain, Denies leg edema, Denies palpitations, Denies dyspnea and Denies dyspnea on exertion Respiratory: Respiratory: Denies cough, Denies dyspnea and Denies dyspnea on exertion Gastrointestinal: Gastrointestinal: Denies abdominal pain, Denies constipation, Denies diarrhea, Denies nausea and Denies vomiting Genitourinary: Genitourinary: Denies hematuria, Denies urinary frequency, Denies dysuria, Denies pelvic pain, Denies urinary incontinence and Denies vaginal discharge Neurologic: Reports system reviewed and no additional complaints, except as documented Psychiatric: Psychiatric: Reports no additional psychiatric complaints Endocrine: Endocrine: Denies palpitations PMFSH Past Medical History Medical History Healthy female adult Kidney stone Surgical History Surgical History No pertinent past surgical history Family History Family History Father Hypertension Social History Social History Smoking status: Never smoker Second hand tobacco smoke exposure: No Alcohol intake: former Substance use: never Lack of Transportation: No Lack of Food: Never True Current Housing: I Have Housing Concerned About Future Housing: No Difficulty Paying Gas/Electric Bills: No Difficulty Paying for Meds: No Currently Unemployed: No Education: High School Diploma/GED Difficulty w/ Childcare or Family Care: No Living arrangements: with family Additional living arrangements comments: and children Occupation/Education: unemployed Gender identity (if verbalized by the patient): Female Sexual Orientation (if Verbalized by the Patient): Straight or Heterosexual Spiritual care concerns: No Meds Home Medications and Allergies Home Medications Medication Instructions Recorded Confirmed Type drospirenone (contraceptive) 4 mg 1 tablet PO DAILY #28 tabs 03/29/23 04/11/23 Rx (28) tablet (Slynd) Allergies Allergy/AdvReac Type Severity Reaction Status Date / Time No Known Allergies Allergy Verified 04/11/23 14:34 Exam Const: General: no acute distress Eyes: EOM: EOMs intact bilaterally Neck: Neck: supple Thyroid: thyroid normal Chest: Breast/axilla inspection: normal inspection of the breasts Breast/axilla palpation: normal palpation of the breasts, normal palpation of the axillae and no axillary lymphadenopathy Resp: Effort & Inspection: normal respiratory effort Auscultation: clear to auscultation bilaterally Cardio: Rate: regular rate Rhythm: regular rhythm GI: Inspection: non-distended GI Palp: Yes Soft to palpation, No Tenderness to palpation present (GI) and No Guarding due to palpation present (GI) Auscultation: normal bowel sounds : General: No bladder normal to palpation External Female Exam: normal external appearance Speculum Exam - Vagina: normal vaginal discharge and No vaginal bleeding Speculum Exam - Cervix: nontender Bimanual exam- vagina & uterus: No bladder normal to palpation and No Cervical tenderness present OB/external & speculum: No vaginal bleeding Skin: General skin exam: normal color and no rashes or lesions noted Neuro: Cognition (Neuro): normal cognition Speech: normal speech Extrem: General: normal to inspection and no edema Psych: Mental Status: mental status grossly normal Affect: normal affect Assessment
--- NOTE | 2023-04-14 08:41 | WPDHPUPDATE1 ---
History and Physical Update Update Date/Time: 04/14/23 08:41 History and Physical has been reviewed, including an updated exam of the patient. There are NO changes in the patient's condition. Risks, benefits, and alternatives have been discussed and questions answered. Patient agrees to proceed with procedure.
[2023-04-14] MEDS: ACETAMINOPHEN 500 MG TABLET 1000 MG PO (13:15)
[2023-04-14] MEDS: KETOROLAC 15 MG/ML VIAL (*BKC) IV PUSH (13:15)
[2023-04-14] MEDS: LACTATED RINGERS 1,000 ML 30 ML IV CONT (13:15)
--- NOTE | 2023-04-14 13:44 | P.PNAN_ITS ---
Anes - Initial Pre Proc Eval Procedure: Operation Date: 04/14/23 14:30 Proposed Procedures p Laparoscopic Bilateral Salpingectomy - Jevon Hamilton MD Date/Time: 04/14/23 13:44 Surgeon: Jevon Hamilton MD Pre Op Diagnosis: desires sterilization Patient Data Age: 37 Gender: F Height: 1.65 m Weight: 87.1 kg Allergies Allergy/AdvReac Type Severity Reaction Status Date / Time No Known Allergies Allergy Verified 04/11/23 14:34 Home Medications Medication Instructions Recorded Confirmed Type drospirenone (contraceptive) 4 mg 1 tablet PO DAILY #28 tabs 03/29/23 04/11/23 Rx (28) tablet (Slynd) Patient hx anesthesia problems: none Family hx anesthesia problems: none Results Review: All pre-operative results and documents have been reviewed as part of the pre-operative evaluation. [facility] Past Medical History Medical History Healthy female adult Kidney stone Surgical History Surgical History No pertinent past surgical history Family History Family History Father Hypertension Social History Social History Smoking status: Never smoker Second hand tobacco smoke exposure: No Alcohol intake: former Substance use: never Lack of Transportation: No Lack of Food: Never True Current Housing: I Have Housing Concerned About Future Housing: No Difficulty Paying Gas/Electric Bills: No Difficulty Paying for Meds: No Currently Unemployed: No Education: High School Diploma/GED Difficulty w/ Childcare or Family Care: No Living arrangements: with family Additional living arrangements comments: and children Occupation/Education: unemployed Gender identity (if verbalized by the patient): Female Sexual Orientation (if Verbalized by the Patient): Straight or Heterosexual Spiritual care concerns: No Anes - Eval Final PreProcedure Day of Procedure 04/14/23 13:44 Patient weight: obese Heart: regular rate and rhythm Lungs: clear to auscultation Airway: Mallampati scale class II Neurological: alert and oriented Last oral intake: >/= 8 hours ASA classification: II Emergent: no Anesthetic plan: proceed Anesthesia type and monitoring: general ETT and standard monitoring Results Review: All pre-operative results and documents have been reviewed as part of the pre- operative evaluation. Informed Consent: The patient's anesthetic plan and its attendant risks and benefits were discussed with the patient/family/POA. Questions were solicited and answers provided to the satisfaction of the patient/family/POA.
[2023-04-14] MEDS: LIDO 1%/EPINEPHRINE 1:100,000 20 ML VIAL 10 ML INFILTRATE (14:16)
--- NOTE | 2023-04-14 14:27 | P.OP_ITS ---
Procedure Note - Detailed Date of Procedure 04/14/23 Pre-op Diagnosis desires sterilization Post-op Diagnosis Same Procedure Performed laparoscopic bilateral salpingectomy Surgeon Jevon Hamilton MD Anesthesia General Indications desires permanent sterilization Findings normal appearing uterus, bilateral fallopian tubes and ovaries. decidual change noted on the anterior uterine serosa Description of Procedure the patient was taken to the operating room where general endotracheal anesthesia was undertaken and found to be adequate. She was then prepped and draped in the dorsal lithotomy position. A pre-operative team brief and time- out were completed. A catheter was placed to drain the bladder. Speculum was placed in the vagina and the cervix was identified. An acorn uterine manipulator was placed as well as single-tooth tenaculum on the anterior lip of the cervix. Attention was then turned to the abdomen which was anesthetized umbilical he with injected anesthetic. A 5 mm skin incision was made in the umbilicus. A 5 mm optical trocar was then placed with direct visualization of the abdominal layers during placement. The trocar stylette was removed and the camera was used to verify intra-abdominal placement.refugio was used to verify intra-abdominal placement. CO2 insufflation was then connected and The abdominal cavity was insufflated. General abdominal and pelvic survey was performed. Two other laparoscopic port site incisions were made approximately 2 cm superior and medial of the ASIS bilaterally. Both fallopian tubes were inspected and identified out to the level of the fimbriae. The Fimbriated end of the left fallopian tube was then grasped with a blunt grasper. the fallopian tube was then transected along its inferior aspect along the mesosalpinx with the LigaSure device. Transection was carried out to the fallopian tubes insertion into the uterine fundus. The fallopian tube was then completely transected from the uterus using the LigaSure device. This procedure was repeated for the right fallopian tube. Good hemostasis was maintained throughout. The transected fgh the 5 mm laparoscopic portrom the abdomen through the 5 mm laparoscopic port. The surgical field was inspected and again could hemostasis was noted. At this point the procedure was ended. The abdomen was desufflated. All laparoscopic ports were removed from the abdomen. Abdominal incisions were closed with 4-0 Vicryl in a subcuticular fashion.. The acorn manipulator and tenaculum weere removed from the vagina. The cervix was inspected and good hemostasis was obtained. Sponge, lap and needle counts were correct. The patient tolerated the procedure well. The patient was taken out of dorsal lithotomy. anesthesia was reversed. The patient was taken to PACU in stable condition. Estimated Blood Loss 10 Urine Output 50 Drains No Packing No Pathology Yes ( Bilateral fallopian tubes) Complications No immediate complications Condition Stable Disposition PACU [facility] Billing Surgery - Charge Forward: Surgery Billing
--- NOTE | 2023-04-14 15:16 | SUR.PHASEI ---
Notified Dr. Anderson regarding patient's elevated BP. No new orders received.
[2023-04-14] MEDS: oxyCODONE HCL (*CRX) 5 MG TAB IR PO (15:46)
== END 2023-04-14 16:50 | disposition home or self-care (01) ==
PROVIDERS: Visit Provider Student in an Organized Health Care Education/Training Program
PROC: (CPT 49320; principal; 2023-04-14 14:30)
DX: Z30.2 Encounter for sterilization (principal); N70.11 Chronic salpingitis
CPT/HCPCS: 58661; 88302; A9270; J1100; J1885; J2250; J2405; J2704; J3010; J7030; J7120

== ENCOUNTER 2025-05-09 20:44 | Emergency (ER) | payer BC, SELFPAY ==
--- OUTSIDE RECORDS SUMMARY | 2015-10-21 06:16 | XMS_ITS | Continuity of Care Document ---
Author Organization [facility] Address [address] [facility] [address] [place] [address] Phone Care Team Providers Care Student Success Advisor Name Role Phone Jagdeep Cruz MD Unavailable Unavailable Allergies, Adverse Reactions, Alerts Substance Reaction Status Criticality No Known Allergies Active No Inform ation Medications Medication Instructions Dosage Effective Dates (start - stop) Status Comments Medrol (Ezio) 4 mg tablets in a dose pack Take as Directed - Active Ultram 50 mg tablet take 1 tablet by oral route every 4 - 6 hours as needed - Active METAXALONE (unknown strength) Not Available - Active NAPROXEN (unknown strength) Not Available - Active Procedures Procedure Date OFFICE CONSULTATION OFFICE/OUTPATIENT VISIT EST OFFICE/OUTPATIENT VISIT NEW Advance Directives Directive Yes / No Effective Date File Name No Information Encounters Encounter Description Practice Location Reason(s) For Visit Diagnoses Date Provider Providers Copied on Encounter [facility], [address] [place] [address], [address], [place] tel:[phone] [facility] No Information 6 Nancy Gannon. [address] [place], [place], [id number]. tel:[phone] [facility], [address] [place] [address], [address], tel:[phone] [facility] Follow Up of CT scan (chief complaint) Other intervertebr al disc degeneration , lumbosacral region 6 Nancy Gannon. [address] [place], [place], [id number]. tel:[phone] OFFICE CONSULTATION [facility], [address] [place] [address], [address], [place] tel:[phone] [facility] Cervical painThoracic spine pain 6 Nancy Gannon. [address] [place] [address], [id number]. tel:[phone] Referring Provider: Juancarlos Chen, [address], [place], [address]. tel:[phone] OFFICE/OUTPAT IENT VISIT [facility], [address] [place] [address], [address], [place] tel:[phone] [facility] Follow Up of cervical- MRI results (chief complaint) Neck strain, initial encounter 6 Corey Borrego. [address] [facility] [address] [facility], [place], [place], [id number]. tel:[phone] Referring Provider: Juancarlos Chen, [address], [place], [address]. tel:[phone] OFFICE/OUTPAT IENT VISIT [facility], [address] [place] [address], [place], [address], [place] tel:[phone] [facility] [place] BACK AND NECK PAIN (chief complaint) Cervical painAcute low back pain due to traumaOther disturbances of skin sensation 6 Gustavo Bauer. [address] [place], [place], [id number]. tel:[phone] Family History Family Member Type Diagnosis Age At Onset Mother Problem (finding) Alive and well Payers Payer name Insurance type Covered libertarian ID Authoriza tikota(s) Blue Access PPO [id number] [id number] Social History Type Description Quantity Date Captured Comments Alcohol Use Details Unknown Caffeine Use Details Unknown Tobacco Use Status No Information Smoking Status No Information Sex Female Chief Complaint And Reason For Visit No Information Reason For Referral Reason For Referral No Information Plan Of Treatment Date Type Action Status Referral Ordered: CT THRC SPI C-MATRL spine, thoracic Appointment date/timeframe: 10/17/2015 ordered Referral Ordered: CT CRV SPI C-MATRL spine, cervical ordered Referral Ordered: RADEX SPI CRV 2/3 VIEWS ordered Referral Ordered: RADEX WRST COMPL MINIMUM 3 VIEWS RT ordered Referral Ordered: MRI SPI CANAL&CNTS CRV C-MATRL spine, cervical Appointment date/timeframe: 09/12/2015 ordered Referral Ordered: RADEX SPI THRC 2 VIEWS ordered History Of Present Illness Encounter Date Complaint History Of Prese nt Illness Follow Up of CT scan Follow Up of cervical- MRI resul ts BACK AND NECK PAIN Functional Status Date Functional Assessmen t No Information Instructions Date Instruction Additional Infor mation Apply ice as tolerated. Related to Neck strain, initial encounter Take medication as directed. Rel ated to Neck strain, initial encounter Elevate extremity above heart. R elated to Neck strain, initial encounter Apply ice as tolerated. Related to Acute low back pain due to trauma apply heating pad or ice as tole rated Related to Cervical pain elevate higher than your heart R elated to Cervical pain Elevate extremity above heart. R elated to Acute low back pain due to trauma Immobilize as directed. Related to Acute low back pain due to trauma activity as tolerated Related to Cervical pain Assessments Type Assessment Date No Information Patient Care Teams Name Effective Dates (start - stop) Status Members No Information
--- OUTSIDE RECORDS SUMMARY | 2017-06-21 12:00 | XMS_ITS | Continuity of Care Document ---
Author Organization [facility] Address [address] [place] [address] [address] [place] [address] Phone Care Team Providers Care Information Systems Security Officer Name Role Phone Suhail PT, EDT, Amando Unavailable Unavaila ble Procedures Procedure Date Therapeutic Exercise Therapeutic Activities Neuromuscular Re-Ed Manual Therapy Therapeutic Exercise Therapeutic Activities Neuromuscular Re-Ed Manual Therapy Therapeutic Exercise Therapeutic Activities Neuromuscular Re-Ed Manual Therapy Therapeutic Exercise Therapeutic Activities Neuromuscular Re-Ed Manual Therapy Therapeutic Exercise Therapeutic Activities Neuromuscular Re-Ed Therapeutic Exercise Therapeutic Activities Neuromuscular Re-Ed Manual Therapy Therapeutic Exercise Therapeutic Activities Neuromuscular Re-Ed Manual Therapy Therapeutic Exercise Therapeutic Activities Neuromuscular Re-Ed Hot or Cold Pack Electrical Stimulation Therapeutic Exercise Therapeutic Activities Neuromuscular Re-Ed Manual Therapy Hot or Cold Pack Electrical Stimulation Therapeutic Exercise Therapeutic Activities Neuromuscular Re-Ed Manual Therapy Hot or Cold Pack Electrical Stimulation Therapeutic Exercise Manual Therapy Hot or Cold Pack Electrical Stimulation Therapeutic Exercise Therapeutic Activities Neuromuscular Re-Ed Manual Therapy Therapeutic Exercise Therapeutic Activities Neuromuscular Re-Ed Manual Therapy Therapeutic Exercise Therapeutic Activities Neuromuscular Re-Ed Manual Therapy PT Evaluation High Complexity Therapeutic Exercise Therapeutic Activities THERAPEUTIC EXERCISES NEUROMUSCULAR RE-ED HOT/COLD PACK THERAPEUTIC EXERCISES NEUROMUSCULAR RE-ED MANUAL THERAPY HOT/COLD PACK THERAPEUTIC EXERCISES NEUROMUSCULAR RE-ED MANUAL THERAPY HOT/COLD PACK PT EVALUATION THERAPEUTIC EXERCISES HOT/COLD PACK ELECTRIC STIMULATION UNATT Advance Directives Directive Yes / No Effective Date File Name No Information Encounters Encounter Description Practice Location Reason(s) For Visit Diagnoses Date Provider Providers Copied on Encounter [facility], [id number], tel:[phone] [place] No Information 7 Suhail Goel. . Referring Provider: [address], [place], [address]. tel:[phone] [facility] [facility] [address], [place], [place], [id number], tel:[phone] [place] No Information 7 Suhail Goel. . Referring Provider: [address], [place], [address]. tel:[phone] [facility], [place], [place], [id number], [place] tel:[phone] [place] No Information 7 Suhail Goel. . Referring Provider: [address], [place], [address]. tel:[phone] [facility], [place], [place], [id number], [place] tel:[phone] [place] No Information 7 Suhail Goel. . Referring Provider: [address], [place], [address]. tel:[phone] [facility] [address], [place], [place], [id number], [place] tel:[phone] [place] No Information 7 Lex Contreras. [address] [place] [address], [address], [place], [place], [facility], . tel: [phone] Referring Provider: [address], [place], [address]. tel:[phone] [facility], [place], [place], [address], [place] tel:[phone] [place] No Information 7 Suhail Goel. . Referring Provider: [address], [place], [address]. tel:[phone] [facility], [place], [id number], [place] tel:[phone] [place] No Information 7 Suhail Goel. . Referring Provider: [address], [place], [address]. tel:[phone] [facility], [place], [place], [address], [place] tel:[phone] [place] No Information Apr-1 9-201 7 Suhail Goel. . Referring Provider: [address], [place], [address]. tel:[phone] [facility], [address] [facility] [address], [place], [place], [id number], [place] tel:[phone] [place] No Information Apr-1 2-201 7 Suhail Goel. . Referring Provider: [address] Omayra Lom[address], [place], [address]. tel:[phone] [facility] [address] [place], [place] [address], [place], [place], [id number], [place] tel:[phone] [place] No Information Apr-1 0-201 7 Lex Contreras. [address] [facility], [address], [place], [place], [facility], . tel: [phone] Referring Provider: [address], [place], [address]. tel:[phone] [facility] [address] [facility], [place], [place], [id number], [place] tel:[phone] [place] No Information Apr-0 5-201 7 Suhail Goel. . Referring Provider: [address], [place], [address]. tel:[phone] [facility] [address] [facility] [facility], [place], [place], [id number], [place] tel:[phone] [place] No Information Apr-0 3-201 7 Suhail Goel. . Referring Provider: [address], [place], [address]. tel:[phone] [facility] [address], [place], [place], [address], [place] tel:[phone] [place] No Information Mar-2 8-201 7 Suhail Goel. . Referring Provider: [address], [place], [address]. tel:[phone] [facility], [address], [place], [place], [address], [place] tel:[phone] [place] No Information Sep-2 7 Suhail Goel. . Referring Provider: [address]mayar [address], [place], [address]. tel:[phone] [facility] [address], [place], [place], [id number], [place] tel:[phone] [place] Pain in right ankle and joints of right footPain in right kneeLow back pain Sep-1 7 Suhail Goel. . Referring Provider: [address], [place], [address]. tel:[phone] [facility], [address], [place], [place], [id number], [place] tel:[phone] [place] No Information November-0 6 Stevie Jarquin. [address] [place] [address], [facility], [place]. tel:[phone] Referring Provider: Jagdeep Cruz, [address] [place] [address] [place] [address], [address]. tel:[phone] [facility] [address] [place], [place] [address], [place], [place], [address], [place] tel:[phone] [place] No Information Oct- 6 Stevie Jarquin. [address] [place] [address], [facility], [place]. [phone] Referring Provider: Jagdeep Cruz, [address] [place] [address] [place] [address], [address]. tel:[phone] [facility], [place], [place], [id number], [place] tel:[phone] [place] No Information Oct- 6 Stevie Jarquin. [address] [place] [address] [address], [place], [address], [place]. tel:[phone] Referring Provider: Jagdeep Cruz, [address] [facility] [address] [place] [address], [address]. tel:[phone] [facility], [address] [facility] [address], [place], [place], [id number], [place] tel:[phone] [facility] CervicalgiaPain in thoracic spineHeadacheSprai n of joints and ligaments of unsp parts of neck, subs Apr-2 1-201 6 Stevie Jarquin. [address] [facility], [address], [place], [address], [place]. tel:[phone] Referring Provider: Jagdeep Cruz, [address] [facility] [address] [place] [address], [address]. tel:[phone] Family History Family Member Type Diagnosis Age At Onset No Information Payers Payer name Insurance type Covered democrat ID Authorshaniquea tikota(s) [facility] Adan RESENDIZ [id number] Social History Type Description Quantity Date Captured Comments Sex Female Smoking Status No Information Chief Complaint And Reason For Visit No Information Reason For Referral Reason For Referral No Information History Of Present Illness Encounter Date Complaint History Of Prese nt Illness No Information Functional Status Date Functional Assessmen t No Information Instructions Date Instruction Additional Infor mation No Information Assessments Type Assessment Date No Information Patient Care Teams Name Effective Dates (start - stop) Status Members No Information
[2025-05-09 20:46] VITALS: BP 146/98; PULSE 83; RESP 18; TEMP 36.4; O2SAT 100
--- OUTSIDE RECORDS SUMMARY | 2025-05-09 21:20 | XMS_ITS | Clinical Summary ---
Author Organization [facility] Address [address] [place] [address] Care Team Providers Care Public Employment Mediator Name Role Phone Bhavna Wayne MD Unavailable [phone] Ed Pineda MD Unavailable [phone] Unknown, Notinfile Primary Care Provider Unavail able Allergies No known active allergies Medications traMADoL (ULTRAM) 50 mg tablet Take 1 tablet (50 mg total) by mouth every 4 (four) hours as needed for pain 8 tablet 2 Active Additional Information Patient not taking.Reported on 04/23/2024 vit,[id number]-c olic (PRENATABS RX) tablet tablet Take by mouth daily Active lidocaine viscous (XYLOCAINE) 2 % solutionIndicatio ns:Infectious mononucleosis without complication, infectious mononucleosis due to unspecified organism Gargle and spit 5 mls every six hours as needed for discomfort. Do not exceed maximum dose of of 4 times daily. 100 mL 4 Active Active Problems Problem Noted Date Diagnosed Date Right renal stone 08/19/2021 Surgical History Surgery Date Site/Laterality Comments NO PAST SURGERIES Medical History Medical History Date Comments Scoliosis Right renal stone 08/2021 Fibroid tumor Family History Medical History Relation Name Comments Heart disease Father Relation Name Status Comments Brother Alive Father Mother Alive Sister Alive Social History Tobacco Use Types Packs/Day Years Used Date Smoking Tobacco: Former Smokeless Tobacco: Never Comments:beginning of pregna ncy Alcohol Use Standard Drinks/Week Comments Yes 0 (1 standard drink = 0.6 oz pur e alcohol) socially Personal Safety Answer Date Recorded Getting School Help Needed Not on file 07/06 Comments No Sex and Gender Information Value Date Recorded Sex Assigned at Not on file Legal Sex Female 2:58 AM INCLUSION SPECIALIST Gender Identity Not on file Sexual Orientation Not on file Obstetrics History Para Term AB IAB SAB Ectopic Multiple Livin g Live Births 6 4 3 1 1 1 1 5 5 Date Outcome GA Total Labor Labor/2nd/3rd Weight Sex Type Anes PTL Kirstin A1 A5 Name Clin 2004 Term F Vag-S pont Epidur al N Livin g Complications:None 2009 34w 0d F Y Complications:None 2012 Term F Vag-S pont N Livin g Complications:None 2016 SAB None 2018 Term 37w 0d 4h 50m 3h 05m/0h 31m/1h 14m 2.34 kg (5 lb 2.5 oz) F Vag-S pont Epidur al N Livin g 8 9 HARRI S,ONE GIRLM ARCEL LA Bhavna Owusu MD Complications:Other (Comment ) Delivery Location:[facility] ([facility] 2018 Term 37w 0d 4h 50m 3h 05m/0h 40m/1h 05m 2.08 kg (4 lb 9.4 oz) M Vag-S pont Epidur al N Livin g 8 9 HARRI S,TWO BOYMA RCELL A Bhavna Owusu MD Complications:Other (Comment ) Delivery Location:[facility] ([facility]) Comments:see ped note Last Filed Vital Signs Vital Sign Reading Time Taken Comments Blood Pressure 152/93 04/23/2024 9:49 AM CDT Pulse 74 04/23/2024 9:49 AM CDT Temperature 36.8 C (98.3 F) 04/23/2024 9:49 AM CDT Respiratory Rate 18 04/23/2024 9:49 AM CDT Oxygen Saturation 99% 04/23/2024 9:49 AM CDT Inhaled Oxygen Concentration - - Weight 72.6 kg (160 lb 1.6 oz) 04/23/2024 9:49 A M CDT Height 165.1 cm (5' 5) 04/23/2024 9:49 AM CDT Body Mass Index 26.64 04/23/2024 9:49 AM CDT Plan of Treatment Health Maintenance Due Date Last Done Comments Cervical Cancer Screening 1985 Hepatitis C Screening 1985 Varicella Vaccines (1 of 2 - 13+ 2-dose series) 1998 Hepatitis B Screening 11/09/2003 Regular Well Visit/Exam 18-64 11/09/2003 Pneumococcal vaccine <65 (1 of 2 - PCV) 2004 HPV Vaccines (1 - 3-dose SCDM series) 2012 Depression Screening 07/07/2019 07/07/2018 DTaP/Tdap/Td Vaccine (2 - Td or Tdap) 04/10/202002/2010 Influenza Vaccine (#1) 2025 Medical Devices Implanted Type Area Multicut Line Operator Device Identifier Shelf Expiration Date Model / Serial / Lot [employer] [id number] Universa 6fr 24cm Radiopaque Positioner Monofilament Tether - [id number] Implanted:Qty: 1 on 08/25/2021 by Ed Pineda MD at [facility] Right: Ureter [employer] [id number] 05/01/2024 [id number] / / [id number] Explanted Type Area Multicut Line Operator Device Identifier Shelf Expiration Date Model / Serial / Lot [employer] [id number] 5fr 26cm Radiopaque Positioner Monofilament Tether - [id number] Implanted:Qty: 1 on 08/19/2021 by Kosta Daniels MD at [facility] Explanted:Qty: 1 on 08/25/2021 by Ed Pineda MD at [facility] Right: Ureter [employer] [id number] 01/28/2024 [id number] / / [id number] Insurance [facility] ACCESS [place] [facility] Advance Directives For more information, please contact: [phone] * Full Code (Latest Code Status on File) Date Activated Date Inactivated Comments 08/19/2021 3:09 PM 08/21/2021 1:14 PM * Full Code Date Activated Date Inactivated Comments 07/06/2018 1:38 AM 07/07/2018 9:12 PM * Full Code Date Activated Date Inactivated Comments 07/05/2018 8:40 AM 07/06/2018 1:38 AM Full CPR in ca se of cardiopulmonary arrest Care Teams Public Employment Mediator Relationship Specialty Start Date End Date Unknown, Notinfile PCP - General 04/23/24 Bhavna Wayne MD [address] [facility] [address] [place] [address] Referring Physician Obstetrics and Gynecology 02/02/18 Ed Pineda MD [address] [facility] [address] [place] [address] Consulting Physician Urology 08/25/21
--- OUTSIDE RECORDS SUMMARY | 2025-05-09 21:20 | XMS_ITS | Clinical Summary ---
Author Organization [facility] Address [address] [place] [address] Care Team Providers Care Mid Level Game Designer Name Role Phone Hiwot Gama MD Unavailable [phone] Source Comments [facility],non-owned Affiliates and Associated Physician Practices is amultiple site organization consisting of ambulatory clinics and hospital sitesin [place], [place], [place] and [place]. This disclosure is being madepursuant to the Care Everywhere program and may not contain all information available regarding this patient. Last updated 18.[facility] Allergies No known active allergies Medications * Be aware that medications may not be up to date on this document. Alwaysverify current medications with the patient. Vit w/Fe-Methylfol -FA (PRENATE ELITE) 27-0.6-0.4 MG TABS Take 1 Tab by mouth once daily 30 Tab 12 5 Active acetaminophen (TYLENOL) 500 MG tablet Take 2 (two) tablets by mouth every 6 hours as needed Maximum allowable Acetaminophen amount = 4 Grams (4000 mg) / 24 hours. 60 tablet 3 1 Active acetaminophen (TYLENOL) 325 MG tablet Take 2 (two) tablets by mouth every 6 hours as needed Maximum allowable Acetaminophen amount = 4 Grams (4000 mg) / 24 hours. 60 tablet 3 1 Active ibuprofen (MOTRIN) 600 MG tablet Take 1 (one) tablet by mouth every 6 hours 30 tablet 3 1 Active Active Problems Problem Noted Date Diagnosed Date 39 weeks gestation of 05/11/2021 Elevated blood pressure read ing without diagnosis of hypertension 04/07/[address] 07/24/2014 Overview (07/24/2014): Inserted in left upper extremity in the office of [facility] [employer] on 07/24/14. Device will on 07/24/17. Resolved Problems Problem Noted Date Diagnosed Date Resolved Date Dichorionic diamniotic twin in second trimester 03/14/2018 09/07/2022 abnormality affecting management of mother, antepartum condition or complication 10/11/2012 07/12/2014 Overview (04/03/2015): Preeclampsia 04/06/2010 07/12/2014 Encounter for supervision of other normal 04/06/2010 07/12/2014 Overview (05/11/2015): history 04/06/2010 07/12/2014 Overview (04/06/2010): sAb at 8 weeks requiring no D&C Immunizations Immunization Administration Dates Next Due TDAP (7yrs+) 04/10/2010 Family History Medical History Relation Name Comments Hypertension Father Hypertension Mother Diabetes Paternal Grandmother Relation Name Status Comments Father Alive Mother Alive Paternal Grandmother Social History Tobacco Use Types Packs/Day Years Used Date Smoking Tobacco: Never Smokeless Tobacco: Never Alcohol Use Standard Drinks/Week Comments No 0 (1 standard drink = 0.6 oz pur e alcohol) Comments No Sex and Gender Information Value Date Recorded Sex Assigned at Not on file Legal Sex Female 4:31 AM BILLET ASSEMBLER Gender Identity Not on file Sexual Orientation Not on file Last Filed Vital Signs Vital Sign Reading Time Taken Comments Blood Pressure 135/79 05/13/2021 7:19 AM BILLET ASSEMBLER Pulse 95 05/12/2021 3:11 PM BILLET ASSEMBLER Temperature 36.6 C (97.8 F) 05/13/2021 7:19 AM BILLET ASSEMBLER Respiratory Rate 18 05/13/2021 7:19 AM BILLET ASSEMBLER Oxygen Saturation 98% 05/13/2021 12:23 AM BILLET ASSEMBLER Inhaled Oxygen Concentration - - Weight 84.8 kg (187 lb) 05/11/2021 10:30 AM BILLET ASSEMBLER Height 165.1 cm (5' 5) 05/11/2021 10:30 AM BILLET ASSEMBLER Body Mass Index 31.12 05/11/2021 10:30 AM BILLET ASSEMBLER Plan of Treatment Health Maintenance Due Date Last Done Comments HEPATITIS C SCREENING 11/04/2003 HEPATITIS B VACCINE (1 of 3 - 19+ 3-dose series) 2004 HPV VACCINE (1 - 3-dose SCDM series) 2012 PAP SMEAR 09/15/2015 09/14/2012, 12/03/2011 (Previously completed), 12/03/2011 (Previously completed) DTAP/TDAP/TD VACCINES (2 - T d or Tdap) 04/10/2020 04/10/2010 DEPRESSION SCREENING 07/04/2024 COVID-19 VACCINE (2023-2 5 season) 2025 INFLUENZA VACCINE (#1) 2025 ZOSTER VACCINE (1 of 2) 11/09/2035 HIV SCREENING Completed 08/02/2012 HIB VACCINE Aged Out No longer eligi ble based on patient's age to complete this topic MENINGOCOCCAL (Group B) VACCINE SHARED DECISION-MAKING Aged Out No longer eligible based on patient's age to complete this topic MENINGOCOCCAL GROUPS A/C/Y/W VACCINE Aged Out No longer eligible b ased on patient's age to complete this topic PNEUMOCOCCAL VACCINE Aged Out No long er eligible based on patient's age to complete this topic Procedures Procedure Name Priority Date/Time Associated Diagnosis Comments CULTURE STREP B+PROBE Routine 01/09/2013 10:26 AM CDT Supervision of other normal GLUCOSE CHALLENGE Routine 11/23/2012 10: 48 AM CDT Supervision of other normal PAP IG LB CT+GC RFLX HPV HR ASCU Routine 09/14/2012 12:52 PM CDT Supervision of other normal HIV-1 HIV-2 ANTIBODY Routine 08/02/2012 4:19 PM BILLET ASSEMBLER examination or test, positive result from Last 3 Months or Most Recently Relevant to Health Maintenance Results * CULTURE STREP B+PROBE (PO REF LAB) (01/09/2013 10:26 AM CDT) Strep Group B Culture/DNA Probe Negative [facility] ACCOUNT BILL Comment: Penicillin G, ampicillin, or cefazolin are indicated for intrapartum prophylaxis of group B Strep (GBS) colonization. Reflex susceptibility testing should be performed prior to use of clindamycin only on GBS isolates from penicillin-allergic women who are considered a high risk for anaphylaxis. Treatment with vancomycin without additional testing is warranted if resistance to clindamycin is noted. (CDC Guidelines, MMWR, 2009) MISCELLANEOUS SAMPLES / Unknown 01/09/2013 10:26 AM CDT 01/09/2013 5:27 PM CDT Narrative Resulting Agency Comment [facility] [address] [phone] us Jimmie Smith MD LAB - MICROBIOLOGY ORDERABLES Final Result Performing Organization Address [facility] Co de Phone Number [facility] ACCOUNT BILL [address] [place] [address] * GLUCOSE CHALLENGE (11/23/2012 10:48 AM CDT) GTT 1Hr 109 65 - 139 mg/dL [facility] INSURANCE BILL Comment: According to ADA, a glucose threshold of >139 mg/dL after 50-gram load identifies approximately 80% of women with gestational diabetes mellitus, while the sensitivity is further increased to approximately 90% by a threshold of >129 mg/dL. Blood specimen (specimen) BLOOD SPECIMEN / Unknown 11/23/2012 10:48 AM CDT 11/23/2012 6:46 PM CDT Narrative Resulting Agency Comment [facility] [address] [phone] us Hiwot Gama MD LAB - CHEMISTRY ORDERAB LES Final Result Performing Organization Address City/[facility]/ZIP Co de Phone Number [facility] INSURANCE BILL [address] [place] [address] * PAP IG CT+GC RFLX HPV ASCU (PO REF LAB) (09/14/2012 12:52 PM CDT) Diagnosis [facility] ACCOUNT BILL Comment: NEGATIVE FOR INTRAEPITHELIAL LESION AND MALIGNANCY. CELLULAR CHANGES ASSOCIATED WITH INFLAMMATION ARE PRESENT. Specimen Adequacy [facility] ACCOUNT BILL Comment: Satisfactory for evaluation. Endocervical and/or squamous metaplastic cells (endocervical component) are present. Clinician Provided ICD9 [facility] ACCOUNT BILL Comment: V22.1 ; Supervision of other normal V72.42 ; examination or test, positive result Performed by [facility] ACCOUNT BILL Comment:Nicholas Beaulieu, Cytotech nologist (ASCP) Comment . [facility] ACCOUNT BILL Note [facility] ACCOUNT BILL Comment: The Pap smear is a screening test designed to aid in the detection of premalignant and malignant conditions of the uterine cervix. It is not a diagnostic procedure and should not be used as the sole means of detecting cervical cancer. Both false-positive and false-negative reports do occur. . IGLBP CPT Code Automation [facility] ACCOUNT BILL Comment: This liquid based ThinPrep(R) pap test was screened with the use of an image guided system. Note [facility] ACCOUNT BILL Comment: The HPV DNA reflex criteria were not met with this specimen result therefore, no HPV testing was performed. . Chlamydia trachomatis SAVAGE Negative Negative [facility] ACCOUNT BILL GC DNA Probe Negative Negative [facility] ACCOUNT BILL MICROSCOPIC CYTOLOGIC EXAMINATION OF SMEAR OF SPECIMEN FROM FEMALE GENITAL TRACT PREPARED USING PAPANICOLAOU TECHNIQUE / Unknown 09/14/2012 12:52 PM CDT 09/15/2012 1:09 AM CDT Narrative [facility] ACCOUNT BILL - 09/20/2012 12:23 PM CDT Source.............Cervical;Endocervical No. of containers..01 CYTYC Thin Prep Vial Resulting Agency Comment [address] [phone] Hiwot Gama MD LAB - PATHOLOGY/CYTOLOG Y ORDERABLES Final Result [facility] ACCOUNT BILL [address] [place] [address] * HIV-1 HIV-2 ANTIBODY (08/02/2012 4:19 PM BILLET ASSEMBLER) HIV-1 Antibody O.D. Ratio <1.00 <1.00 [facility] INSURANCE BILL Comment:Index Value: Specime n reactivity relative to the negative cutoff. HIV-1/HIV-2 Non Reactive Non Reactive [facility] INSURANCE BILL Blood specimen (specimen) BLOOD SPECIMEN / Unknown 08/02/2012 4:19 PM BILLET ASSEMBLER 08/02/2012 6:01 PM BILLET ASSEMBLER Narrative Resulting Agency Comment [facility] [address] [facility] [phone] Hiwot Gama MD LAB - CHEMISTRY ORDERAB LES Final Result [facility] INSURANCE BILL [address] [place] [address] from Last 3 Months or Most Recently Relevant to Health Maintenance Insurance [facility] [id number] [place] [address] [employer] [facility] [place] [id number] Advance Directives * Full Code (Latest Code Status on File) Date Activated Date Inactivated Comments 05/11/2021 11:26 AM 05/13/2021 6:03 PM * Full Code Date Activated Date Inactivated Comments 04/07/2021 12:41 PM 04/08/2021 5:37 PM * Full Code Date Activated Date Inactivated Comments 04/06/2010 7:47 PM 04/11/2010 1:21 AM Care Teams Mid Level Game Designer Relationship Specialty Start Date End Date Hiwot Gama MD Housetrailer Servicer Obstetrics and Gynecology 08/02/12
--- OUTSIDE RECORDS SUMMARY | 2025-05-09 21:20 | XMS_ITS | Clinical Summary ---
Author Organization [facility] Address [address] [place] [address] Care Team Providers Care Roving Court Reporter Name Role Phone Hiwot Gama MD Primary Care Provider Social History Tobacco Use Types Packs/Day Years Used Date Smoking Tobacco: Never Assessed Comments Unknown Sex and Gender Information Value Date Recorded Sex Assigned at Not on file Legal Sex Female 3:27 PM CDT Gender Identity Not on file Sexual Orientation Not on file Plan of Treatment Health Maintenance Due Date Last Done Comments DTAP/TDAP/TD VACCINES (1 - Tdap) 2004 HEPATITIS B VACCINES (1 of 3 - 19+ 3-dose series) 02/2005 HPV/Cotest (21-29) 2006 HPV VACCINES (1 - 3-dose SCDM series) 2012 CERVICAL CANCER SCREENING 11/09/2015 HPV/Cotest (30-65) 11/09/2015 PAP SMEAR 11/09/2015 INFLUENZA VACCINE (#1) [address] [facility] BLUE ACCESS/TRUE BLUE PPO Care Teams Roving Court Reporter Relationship Specialty Start Date End Date Hiwot Gama MD [facility] [address] [place] Kiser [phone] PCP - General Internal Medicine 10/14/15
--- OUTSIDE RECORDS SUMMARY | 2025-05-09 21:21 | XMS_ITS | Patient Health Record ---
Author Organization [facility] Address [address] [place] [id number] Care Team Providers Care Curing Press Operator Name Role Phone Gabriele Valdes Primary Care Provider Allergies No Known Allergies Reason For Referral No Information Medications Medication SIG (Take, Route, Fr equency, Duration) Notes Start Date End Date Status 28-0.8 MG 1 tablet Orally Once a day Active Social History Tobacco Use: Social History Observation Description Date Details (start date - stop date) Never Smoker NA - NA Sex Assigned At : Social History Observation Description Sex Assigned At Female Tobacco Use/Smoking Question Answer Notes Are you a: never smoker Alcohol Screen (Audit-C) Question Answer Notes Did you have a drink containing alcohol in the p ast year? No Points 0 Interpretation Negative Sexual History Question Answer Notes Had sex in the past 12 months (vaginal, oral, or anal)? Yes Problems Problem Type SNOMED Code ICD Code Onset Dates Problem Status W/U Status Risk Notes Problem Finding related to (985760373) related conditions, unspecified, first trimester (O26.91) Active confirm Plan Of Treatment No Information Insurance Providers Payer Name Payer Address Payer Phone Subscriber Number Group Number Insured Name Patient Relationship to Insured Coverage Start Date Coverage End Date [employer] ([facility]) [address] [place] [address] [id number] Dayanara Dale Self - patient is the insured Medical (General) History Surgical History Surgery Date(Month/Year) vaginal delivery
== END 2025-05-09 23:47 | disposition left against medical advice (07) ==
DX: M54.9 Dorsalgia, unspecified (principal)
CPT/HCPCS: 99199